=== PATIENT | male | born 1945 | race Caucasian/White ===

== ENCOUNTER 2016-08-21 14:58 | Emergency (ER) | payer MEDICARE, BC ==
--- NOTE | 2016-08-21 16:33 | ED ---
General Adult HPI - General Chief complaint: Extremity Problem,Nontraumatic Stated complaint: Leg Pain/Knee Pain/ Post Op Time Seen by Provider: 08/21/16 15:38 Source: patient, RN notes reviewed, old records reviewed Mode of arrival: ambulatory Limitations: no limitations - History of Present Illness Initial comments: This is a 71-year-old male the ER for evaluation of ankle pain, some leg pain, leg swelling. Patient does have recent history of significant travel, [place] , also has history of remote surgery a few months ago. Patient is slightly left leg concern for DVT. Patient denies any other issues - Related Data Home Medications Medication Instructions Recorded Confirmed Aspirin EC [Ecotrin Low Dose] 81 mg PO HS 08/21/16 08/21/16 Citalopram Hydrobromide [CeleXA] 20 mg PO DAILY 08/21/16 08/21/16 Cranberry Fruit Extract [Cranberry] 200 mg PO BID 08/21/16 08/21/16 Lisinopril 40 mg PO HS 08/21/16 08/21/16 Metoprolol Succinate [Toprol XL] 50 mg PO HS 08/21/16 08/21/16 Multivitamins, Thera [Multivitamin 1 tab PO DAILY 08/21/16 08/21/16 (formulary)] Nitrofurantoin Monohyd/M-Cryst 100 mg PO DAILY 08/21/16 08/21/16 [Macrobid] Simvastatin [Zocor] 10 mg PO HS 08/21/16 08/21/16 Tadalafil [Cialis] 5 mg PO DAILY 08/21/16 08/21/16 amLODIPine [Norvasc] 10 mg PO DAILY 08/21/16 08/21/16 Allergies Allergy/AdvReac Type Severity Reaction Status Date / Time Sulfa (Sulfonamide Allergy Rash/Hives Verified 08/21/16 15:37 Antibiotics) Review of Systems ROS Statement: Those systems with pertinent positive or pertinent negative responses have been documented in the HPI. ROS Other: All systems not noted in ROS Statement are negative. Past Medical History Past Medical History: Hyperlipidemia, Hypertension, Prostate Disorder History of Any Multi-Drug Resistant Organisms: None Reported Past Surgical History: Cholecystectomy, Orthopedic Surgery, Prostate Surgery Past Psychological History: Anxiety Smoking Status: Never smoker Past Alcohol Use History: Rare Past Drug Use History: None Reported General Exam Limitations: no limitations General appearance: alert, in no apparent distress Head exam: Present: atraumatic, normocephalic, normal inspection Eye exam: Present: normal appearance, PERRL, EOMI. Absent: scleral icterus, conjunctival injection, periorbital swelling ENT exam: Present: normal exam, mucous membranes moist Neck exam: Present: normal inspection. Absent: tenderness, meningismus, lymphadenopathy Respiratory exam: Present: normal lung sounds bilaterally. Absent: respiratory distress, wheezes, rales, rhonchi, stridor Cardiovascular Exam: Present: regular rate, normal rhythm, normal heart sounds. Absent: systolic murmur, diastolic murmur, rubs, gallop, clicks GI/Abdominal exam: Present: soft, normal bowel sounds. Absent: distended, tenderness, guarding, rebound, rigid Extremities exam: Present: normal inspection, full ROM, normal capillary refill. Absent: tenderness, pedal edema, joint swelling, calf tenderness Back exam: Present: normal inspection Neurological exam: Present: alert, oriented X3, CN II-XII intact Psychiatric exam: Present: normal affect, normal mood Skin exam: Present: warm, dry, intact, normal color. Absent: rash Course Vital Signs 08/21/16 15:14 Temperature 98.1 F Pulse Rate 58 L Respiratory 18 Rate Blood Pressure 170/87 O2 Sat by Pulse 95 Oximetry Medical Decision Making - Medical Decision Making 71 medical ER for evaluation. Patient presents today for evaluation of left lower extremity edema, ultrasound NEGATIVE FOR DVT, PATIENT TO BE DISCHARGED HOME, URGED REST ICE AND ELEVATION - Radiology Data Radiology results: report reviewed (Ultrasound is negative for DVT), image reviewed Disposition Clinical Impression: Leg edema, left Disposition: HOME SELF-CARE Condition: Good Instructions: Leg Edema (ED) Referrals: None,Stated [Primary Care Provider] - 1-2 days
--- NOTE | 2016-08-21 16:49 | US ---
EXAMINATION TYPE: US venous doppler duplex LE LT DATE OF EXAM: 08/21/2016 4:34 PM COMPARISON: NONE CLINICAL HISTORY: Pain. SIDE PERFORMED: Left TECHNIQUE: The lower extremity deep venous system is examined utilizing real time linear array sonog katharina with graded compression, doppler sonography and color-flow sonography. VESSELS IMAGED: External Iliac Vein (EIV) Common Femoral Vein Deep Femoral Vein Greater Saphenous Vein * Femoral Vein Popliteal Vein Small Saphenous Vein * Proximal Calf Veins (* superficial vessels) Left Leg: Negative for DVT IMPRESSION negative exam. No evidence of deep venous thrombosis.
[2016-08-21 17:23] VITALS: BP 165/95; PULSE 55; RESP 16; TEMP 98
== END 2016-08-21 17:23 | disposition home or self-care (01) ==
LOC: EC 14:58
DX: R60.0 Localized edema (principal); E78.5 Hyperlipidemia, unspecified; I10 Essential (primary) hypertension; F41.9 Anxiety disorder, unspecified; Z79.82 Long term (current) use of aspirin; Z79.899 Other long term (current) drug therapy; Z88.2 Allergy status to sulfonamides
CPT/HCPCS: 99284